=== PATIENT | male | born 1955 | race Caucasian/White ===

== ENCOUNTER 2018-10-18 04:56 | Emergency (ER) | payer SELFPAY ==
[~2018-10-18] VITALS: Ht 180.3 cm; Wt 70.3 kg
[~2018-10-18 04:56] MED LIST: ANTIBIOTIC O500 U/GM TP; ANTIVERT25 MG PO; DAYPRO600 M1 PO; HYDROCODONE BIT1 T11 PO; KEFLEX500 MG PO; KENALOG0.1% TP; ROBAXIN750 MG PO; VISTARIL25 MG PO
[2018-10-18] MEDS ORDERED: BENADRYL ALLERG25 M5 PO (05:24)
[2018-10-18] MEDS ORDERED: PREDNISONE20 M1 PO (05:24)
== END 2018-10-18 06:53 | disposition home or self-care (01) ==
LOC: ED 04:56
DX: L25.9 Unspecified contact dermatitis, unspecified cause (principal); Z88.6 Allergy status to analgesic agent; Z88.8 Allergy status to other drugs, medicaments and biological substances; Z79.2 Long term (current) use of antibiotics

== ENCOUNTER 2018-10-27 11:05 | Emergency (ER) | payer SELFPAY ==
[~2018-10-27] VITALS: Wt 70.3 kg
--- NOTE | ~2018-10-27 | EKG ---
[place], [place] ELECTROCARDIOGRAM REPORT NAME: FELY MAURICIO UNIT #: [id number] ROOM: DOCTOR: EPIPHANY DRAFT REPORT BIRTHDATE: [birth year] [facility] Test Date: 2018-10-27 Test Time: 12:51:31 Pat Name: FELY MAURICIO Department: Room: Gender: Clarifier Operator: : [id number] Requested By: DON AVALOS Order Number: [id number] Reading MD: Edilberto Mckeon MD Measurements Intervals [place] Rate: 49 P: 73 MS: 154 QRS: 73 QRSD: 95 T: 60 QT: 479 QTc: 433 Interpretive Statements Sinus bradycardia Nonspecific ST changes Electronically Signed On 10-27-2018 12:47:02 PDT by Edilberto Mckeon MD CM:EKGRPT:ELECTROCARDIOGRAM REPORT [id number] DON AVALOS MD [facility] RE[facility] DON AVALOS MD
[~2018-10-27 11:05] MED LIST changes: +BENADRYL ALLERG25 M5 PO; +PREDNISONE20 M1 PO
[2018-10-27 12:41] LABS: BASO % 0.5 % (0.0-1.0); EOS # 0.3 10*3/uL (0.0-0.4); EOS % 4.1 % (1.0-4.0); HEMATOCRIT 44.1 % (42.0-52.0); HEMOGLOBIN 14.6 g/dl (14.0-18.0); LYMPH # 1.6 10*3/uL (1.3-4.4); LYMPH % 21.5 % (27.0-41.0); MEAN CELL VOLUME 91.5 fl (80.0-94.0); MEAN CORPUSCULAR HGB 30.3 pg (27.0-31.0); MEAN CORPUSCULAR HGB CONC 33.1 g/dl (33.0-37.0); MEAN PLATELET VOLUME 9.7 fl (9.6-12.3); MONO # 0.6 10*3/uL (0.1-1.0); NEUT # 4.9 10*3/uL (2.3-7.9); NEUT % 65.6 % (47.0-73.0); PLATELET COUNT AUTOMATED 198 10*3/uL (130-400); RED BLOOD COUNT 4.82 10*6/uL (4.50-5.90); WHITE BLOOD COUNT 7.5 10*3/uL (4.8-10.8)
[2018-10-27 12:57] LABS: ACT PARTIAL THROMBO TIME 26.3 SECONDS (20.0-32.1)
[2018-10-27 12:59] LABS: ALBUMIN 3.5 gm/dl (3.1-4.5); ALKALINE PHOSPHATASE 77 U/L (45-117); BUN 18 mg/dl (7-24); CHLORIDE 107 mmol/L (98-107); CREATININE 0.81 mg/dL (0.70-1.30); POTASSIUM 4.2 mmol/L (3.5-5.1); SGOT/AST 9 IU/L (3-35); SGPT/ALT 23 U/L (12-78); SODIUM 139 mmol/L (136-145); TOTAL PROTEIN 6.7 gm/dL (6.4-8.2)
[2018-10-27 13:03] LABS: TROPONIN I < 0.015 ng/ml (<0.045)
[2018-10-27 13:25] LABS: BILIRUBIN NEGATIVE (NEGATIVE); BLOOD NEGATIVE (NEGATIVE); CLARITY SL CLOUDY (CLEAR); COLOR YELLOW (YELLOW); GLUCOSE NEGATIVE (NEGATIVE); KETONE NEGATIVE (NEGATIVE); LEUKO ESTERASE NEGATIVE (NEGATIVE); NITRITE NEGATIVE (NEGATIVE); UROBILINOGEN 0.2 E.U./dl (0.2-1.0)
[2018-10-27 13:44] LABS: BACTERIA TRACE; MUCOUS 1+
== END 2018-10-27 15:10 | disposition home or self-care (01) ==
LOC: ED 11:05
PROVIDERS: Emergency Medicine
DX: R11.2 Nausea with vomiting, unspecified (principal); R42 Dizziness and giddiness; R00.1 Bradycardia, unspecified; H92.01 Otalgia, right ear; R79.1 Abnormal coagulation profile; F17.200 Nicotine dependence, unspecified, uncomplicated; Z88.6 Allergy status to analgesic agent; Z88.8 Allergy status to other drugs, medicaments and biological substances